=== PATIENT | female | born 1985 | race Caucasian/White ===

== ENCOUNTER 2021-01-06 17:09 | Emergency (ER) | payer OTHER ==
[~2021-01-06 17:09] MED LIST: BACTRIM DS TAB1 EACH PO; HYDROCODON-ACE1 EAC2 PO; HYDROXYZINE HCL25 MG PO
[2021-01-06 19:25] LABS: HEMOGLOBIN 12.4 gm/dl (12.3-15.3); RED BLOOD COUNT 4.23 M/UL (4.00-5.10); WHITE BLOOD COUNT 10.9 K/UL (4.5-11.0)
[2021-01-06 19:38] LABS: BUN/CREATININE RATIO 6 (0-10)
[2021-01-06] MEDS ORDERED: CLINDAMYCIN HC300 MG PO (20:31)
== END 2021-01-06 20:48 | disposition home or self-care (01) ==
LOC: ER1 17:09
PROVIDERS: Preventive Medicine Occupational Medicine
DX: L03.211 Cellulitis of face (principal); F17.210 Nicotine dependence, cigarettes, uncomplicated; Z88.0 Allergy status to penicillin
CPT/HCPCS: 70486; 80053; 85025; 96365; 96375; 99284; J1170

== ENCOUNTER 2021-04-22 12:13 | Emergency (ER) | payer OTHER ==
[~2021-04-22 12:13] MED LIST changes: +CLINDAMYCIN HC300 MG PO
== END 2021-04-22 13:47 | disposition left against medical advice (07) ==
LOC: ER1 12:13
DX: Z53.21 Procedure and treatment not carried out due to patient leaving prior to being seen by health care provider (principal)

== ENCOUNTER 2021-06-16 00:15 | Emergency (ER) | payer SELFPAY ==
[2021-06-16] MEDS ORDERED: CLEOCIN HCL150 MG PO (00:42)
[2021-06-16] MEDS ORDERED: IBUPROFEN600 MG PO (00:42)
== END 2021-06-16 01:25 | disposition home or self-care (01) ==
LOC: ER1 00:15
DX: L02.413 Cutaneous abscess of right upper limb (principal); F17.210 Nicotine dependence, cigarettes, uncomplicated; Z88.0 Allergy status to penicillin; Z88.8 Allergy status to other drugs, medicaments and biological substances; Z90.89 Acquired absence of other organs
CPT/HCPCS: 99282

== ENCOUNTER 2021-11-24 11:13 | Emergency (ER) | payer OTHER ==
[~2021-11-24 11:13] MED LIST changes: +CLEOCIN HCL150 MG PO; +IBUPROFEN600 MG PO
[2021-11-24 12:58] LABS: HEMOGLOBIN 12.8 gm/dl (12.3-15.3); RED BLOOD COUNT 4.64 M/UL (4.00-5.10); WHITE BLOOD COUNT 10.5 K/UL (4.5-11.0)
[2021-11-24 13:30] LABS: BUN/CREATININE RATIO 10 (0-10)
[2021-11-24] MEDS ORDERED: HYDROCODON-ACE1 EAC4 PO (15:11)
[2021-11-24] MEDS ORDERED: CLEOCIN HCL300 MG PO (15:11)
== END 2021-11-24 15:03 | disposition home or self-care (01) ==
LOC: ER1 11:13
PROVIDERS: Physician Assistant Medical
DX: M27.2 Inflammatory conditions of jaws (principal); Z88.0 Allergy status to penicillin; F17.200 Nicotine dependence, unspecified, uncomplicated; Z88.6 Allergy status to analgesic agent
CPT/HCPCS: 70487; 80053; 83605; 85025; 87040; 99284; Q9967

== ENCOUNTER 2022-04-21 10:05 | Emergency (ER) | payer MEDICAID ==
[~2022-04-21 10:05] MED LIST changes: +CLEOCIN HCL300 MG PO; +HYDROCODON-ACE1 EAC4 PO
[2022-04-21 13:25] LABS: HEMOGLOBIN 13.3 gm/dl (12.3-15.3); RED BLOOD COUNT 4.69 M/UL (4.00-5.10); WHITE BLOOD COUNT 7.1 K/UL (4.5-11.0)
[2022-04-21 13:40] LABS: BUN/CREATININE RATIO 14 (0-10)
[2022-04-24 22:10] LABS: CHLAMYDIA TRACHOMATIS, NAA Negative (Negative); NEISSERIA GONORRHOEAE, NAA Negative (Negative)
== END 2022-04-21 18:00 | disposition home or self-care (01) ==
LOC: ER1 10:05
PROVIDERS: Physician Assistant
DX: N85.8 Other specified noninflammatory disorders of uterus (principal); Z90.89 Acquired absence of other organs; Z88.0 Allergy status to penicillin; Z88.6 Allergy status to analgesic agent
CPT/HCPCS: 71045; 80053; 81001; 83690; 84703; 85025; 85379; 87086; 99284; Q9967

== ENCOUNTER 2022-05-25 09:32 | Inpatient (IN) | payer OTHER ==
[~2022-05-25] VITALS: Ht 170.2 cm; Wt 77.1 kg
[2022-05-25 10:22] LABS: HEMOGLOBIN 12.8 gm/dl (12.3-15.3); RED BLOOD COUNT 4.44 M/UL (4.00-5.10); WHITE BLOOD COUNT 7.9 K/UL (4.5-11.0)
[2022-05-26 02:44] LABS: HEMOGLOBIN 11.7 gm/dl (12.3-15.3); RED BLOOD COUNT 4.15 M/UL (4.00-5.10)
[2022-05-26 02:58] LABS: WHITE BLOOD COUNT 11.2 K/UL (4.5-11.0)
[2022-05-26] MEDS ORDERED: PHENERGAN 25 MG25 M1 PO (08:09)
[2022-05-26] MEDS ORDERED: COLACE 100MG C100 MG PO (08:09)
[2022-05-26] MEDS ORDERED: HYDROCODON-ACE1 EAC6 PO (08:09)
== END 2022-05-26 13:39 | disposition home or self-care (01) | DRG 743 ==
LOC: M/S 09:32 → OR 09:32 → M/S 15:30 → OR 15:31 → M/S 05-26 13:39
PROVIDERS: ADMIT Obstetrics & Gynecology
PROC: 0UT20ZZ Resection of Bilateral Ovaries, Open Approach (ICD-10-PCS; 2022-05-25)
PROC: 0UT70ZZ Resection of Bilateral Fallopian Tubes, Open Approach (ICD-10-PCS; 2022-05-25)
PROC: 0UT90ZZ Resection of Uterus, Open Approach (ICD-10-PCS; principal; 2022-05-25 12:30)
DX: D25.9 Leiomyoma of uterus, unspecified (principal); Z20.822 Contact with and (suspected) exposure to COVID-19; F41.9 Anxiety disorder, unspecified; F32.A Depression, unspecified; G43.909 Migraine, unspecified, not intractable, without status migrainosus; D64.9 Anemia, unspecified; F10.10 Alcohol abuse, uncomplicated; F17.210 Nicotine dependence, cigarettes, uncomplicated; F12.90 Cannabis use, unspecified, uncomplicated; Z80.0 Family history of malignant neoplasm of digestive organs; Z80.8 Family history of malignant neoplasm of other organs or systems; Z82.49 Family history of ischemic heart disease and other diseases of the circulatory system; Z83.3 Family history of diabetes mellitus; Z88.1 Allergy status to other antibiotic agents; Z88.0 Allergy status to penicillin
CPT/HCPCS: 36415; 81001; 84702; 85025; J1580; J2001; J2250; J2270; J2405; J2550; J2704; J2710; J2795; J3010